=== PATIENT | female | born 1935 | race Caucasian/White ===

== ENCOUNTER 2017-07-25 19:40 | Emergency (ER) | payer OTHER ==
[~2017-07-25] VITALS: Ht 160 cm; Wt 65.8 kg
[2017-07-25] MEDS ORDERED: CALCIUM 500 +1 EAC5 PO (20:15)
[2017-07-25] MEDS ORDERED: LISINOPRIL10 MG PO (20:15)
[2017-07-25] MEDS ORDERED: FLAX OIL1000 MG PO (20:16)
[2017-07-25] MEDS ORDERED: MAGOX 400400 MG PO (20:16)
[2017-07-25 20:42] LABS: HEMOGLOBIN 12.6 gm/dL (12.0-15.0); MCH 30.8 pg (26.0-34.0); MCHC 34.2 g/dL (28.0-37.0); MCV 90.1 fL (80.0-100.0); MPV 7.9 fl. (7.2-11.1); NUCLEATED RBCS 0 /100WBC; PLATELET COUNT* 242 thou/uL (150-400); RDW-CV 13.8 % (10.5-14.5); WBC 14.2 thou/uL (4.0-11.0)
[2017-07-25 20:51] LABS: CALCIUM 9.5 mg/dL (8.5-10.1); CREATININE 1.2 mg/dL (0.6-1.3); POTASSIUM 4.2 mmol/L (3.5-5.1)
[2017-07-25 20:54] LABS: APTT 32.9 Seconds (25.0-31.3); PROTIME 10.2 Seconds (9.20-11.50)
[2017-07-25 20:55] LABS: ALBUMIN 3.8 g/dL (3.4-5.0); TOTAL BILIRUBIN 0.5 mg/dL (<0.1-1.0); TOTAL PROTEIN 7.6 g/dL (6.4-8.2)
[2017-07-25 21:23] LABS: ABSOLUTE EOSINOPHILS 0.1 thou/uL (0.0-0.7); ABSOLUTE LYMPHOCYTES 1.1 thou/uL (0.8-5.3); ABSOLUTE MONOCYTES 0.9 thou/uL (0.0-1.2); ABSOLUTE NEUTROPHILS 12.1 thou/uL (1.6-8.1); PLATELET ESTIMATE ADEQUATE
[2017-07-25 21:24] LABS: TOXIC GRANULATION 1+
[2017-07-25] MEDS ORDERED: CIPROFLOXACIN500 M1 PO (22:33)
[2017-07-25] MEDS ORDERED: BENTYL 20 MG TA20 M1 PO (22:33)
[2017-07-25] MEDS ORDERED: ZOFRAN4 MG PO (22:33)
[2017-07-25] MEDS ORDERED: FLAGYL500 MG PO (22:33)
[2017-07-25 23:05] VITALS: BP 122/65
--- NOTE | 2017-07-28 11:30 | EKG ---
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 White : 1935 Requested By: Mal Smith Order Number: [id number] MD: Bello Reid Measurements Intervals Gantt Rate: 73 P: 67 OK: 205 QRS: 3 QRSD: 89 T: 61 QT: 363 QTc: 400 Interpretive Statements Sinus rhythm Probable left atrial enlargement Abnormal R-wave progression, early transition Left ventricular hypertrophy No previous ECG available for comparison Electronically Signed On 07-28-2017 11:30:18 CDT by Bello Reid [email or web address] <ELECTRONICALLY SIGNED> By: Bello Reid MD, [facility] 07/28/17 1130 56 56 Bello Reid MD, FACC /EPI
== END 2017-07-25 23:32 | disposition home or self-care (01) ==
LOC: M.ERS 19:40
PROVIDERS: Nurse Practitioner Family
DX: K57.92 Diverticulitis of intestine, part unspecified, without perforation or abscess without bleeding (principal); I10 Essential (primary) hypertension; Z88.8 Allergy status to other drugs, medicaments and biological substances